=== PATIENT | male | born 1945 | race Caucasian/White ===

== ENCOUNTER 2020-07-26 10:43 | Emergency (ER) | payer MEDICARE, SELFPAY ==
[2020-07-26 10:56] VITALS: BP 175/79; PULSE 67; RESP 16; TEMP 36.8; O2SAT 98
--- NOTE | 2020-07-26 11:23 | ED.MALEGU ---
HPI - Male Genitourinary <ALLIE Mobley - Last Filed: 07/26/20 15:25> General Chief complaint: Urogenital-Male Stated complaint: Having a hard time Peeing since 6 AM Time Seen by Provider: 07/26/20 10:58 Source: patient Mode of arrival: Ambulatory Limitations: no limitations History of Present Illness HPI Narrative: 75-year-old male with history of BPH, presents to the emergency department for changes in urination that started at 6:00 a.m. this morning. He states he initially urinated at 6:00 a.m, which was fine. A few minutes after patient noticed that he had an increased urge to urinate approximately 6-7 times after this. He states the urge was sudden and he had a small amount of incontinence with some dysuria. Approximately a few hours later he had a few episodes of diarrhea. After passing stool, all issues resolved. Patient denies any abdominal pain, no further diarrhea. Patient denies fevers, chills, nausea, vomiting, chest pain, shortness of breath, or any other concerns. Patient denies any rectal pressure or pain. Related Data Home Medications Medication Instructions Recorded Confirmed ASPIRIN (Aspir-Low) 81 mg PO QDAY #0 06/07/12 [CALCIUM] #0 06/07/12 tadalafil [Cialis] 20 mg PO PRN #0 06/07/12 CHOLECALCIFEROL (VITAMIN D3) 2,000 units PO QDAY #0 06/10/12 Previous Rx's Medication Instructions Recorded dutasteride [Avodart] 0.5 mg PO QDAY #90 08/14/12 lisinopril [Zestril] 10 mg PO QDAY #90 12/02/12 cefuroxime axetil 500 mg PO BID 7 Days #14 tab 07/26/20 Review of Systems <ALLIE Mobley - Last Filed: 07/26/20 15:25> Review of Systems Narrative: REVIEW OF SYSTEMS: GENERAL: Denies fever. HENT: No head trauma. CARDIOVASCULAR: No chest pain. RESPIRATORY: No shortness of breath or cough. GASTROINTESTINAL: Denies abdominal pain. GENITOURINARY: Reports increased urinary urgency and dysuria. MUSCULOSKELETAL: No pain, weakness, or trauma. INTEGUMENTARY: No rash, lesions, or pruritus. NEURO: No numbness or tingling. PSYCH: No behavior or mood changes. Patient History <ALLIE Mobley - Last Filed: 07/26/20 15:25> Medical History BPH (benign prostatic hyperplasia) Social History Smoking Status: Never smoker Smoking Status: Never smoker alcohol intake frequency: 0-2 drinks per day Substance Use Type: does not use Exam <ALLIE Mobley - Last Filed: 07/26/20 15:25> Initial Vital Signs Initial Vital Signs: Vital Signs Temperature 98.3 F 07/26/20 10:56 Pulse Rate 67 07/26/20 10:56 Respiratory Rate 16 07/26/20 10:56 Blood Pressure 175/79 H 07/26/20 10:56 Pulse Oximetry 98 07/26/20 10:56 PHYSICAL EXAMINATION: GENERAL: Awake and alert, no distress. HENT: Normocephalic, atraumatic. Hearing intact. EYES: Conjunctiva pink, sclera white, no periorbital swelling. CARDIOVASCULAR: S1 and S2 sounds normal. Regular rate and rhythm, no murmurs, clicks, or bruits. No pedal edema. RESPIRATORY: Normal respiratory rate, trachea midline, airway patent. No stridor, nasal flaring or accessory muscle use. Lungs are clear in all rain without wheeze, rhonchi, or crackles. GASTROINTESTINAL: Bowel sounds normoactive. Abdomen is soft and nontender. No organomegaly, no palpable masses. GENITALURINARY: No flank tenderness. MUSCULOSKELETAL: Normal gait and coordination. Equal tone and mass bilaterally. EXTREMITIES: CMS intact, no pedal edema. SKIN: Warm, dry, soft, appropriate color for ethnicity. No lesions, rashes, or wounds to visualized areas. NEURO: Alert and Oriented X 3. Good coordination. No ataxia, or sensory deficits, or cognitive issues. PSYCH: Appropriate affect and mood. <Cristina Chappell DO - Last Filed: 07/26/20 19:04> Initial Vital Signs Initial Vital Signs: Vital Signs Temperature 98.3 F 07/26/20 10:56 Pulse Rate 67 07/26/20 10:56 Respiratory Rate 16 07/26/20 10:56 Blood Pressure 175/79 H 07/26/20 10:56 Pulse Oximetry 98 07/26/20 10:56 Course <JulietALLIE Alvarez - Last Filed: 07/26/20 15:25> Orders Ordered: ED Orders 07/26/20 11:35 Urine Culture Stat Urine Microscopic Stat Consultations Consultation #1: Patient staffed with Dr. Chappell discussed test, test results, and plan of care. Vital Signs Vital signs: Vital Signs - 8 hr 07/26/20 11:58 07/26/20 12:00 07/26/20 12:24 Pulse Rate 61 64 67 Blood Pressure 148/76 H Pulse Oximetry 98 98 98 <Cristina Chappell DO - Last Filed: 07/26/20 19:04> Orders Ordered: ED Orders 07/26/20 11:35 Urine Culture Stat Urine Microscopic Stat Vital Signs Vital signs: Vital Signs - 8 hr 07/26/20 11:58 07/26/20 12:00 07/26/20 12:24 Pulse Rate 61 64 67 Blood Pressure 148/76 H Pulse Oximetry 98 98 98 MDM - Male Genitourinary <Juliet MaravillaALLIE garcia - Last Filed: 07/26/20 15:25> Medical Records Attestation: I reviewed the patient's medical records. Lab Data Attestation: I reviewed the patient's lab results. Labs: Lab Results 07/26/20 Range/Units 11:35 Urine RBC 30-100/hpf H (0-5/HPF) Urine WBC 1-5/hpf (0-5/HPF) Urine Bacteria Moderate (10-30) H (None) Urine Mucus 1+ H (Negative) Ur Culture Indicated? Cult not indicated Urine Dip Bedside Urine Glucose Negative Bedside Urine Bilirubin - Negative Bedside Urine Ketone +/- 5 Urine Specific [place] 1.020 Bedside Urine Occult Blood +++ Bedside Urine pH 6.5 Bedside Urine Protein ++ 100 Bedside Urine Urobilinogen - Negative Bedside Urine Nitrite - Negative Bedside Urine Leukocytes - Negative Esterase MDM Narrative Medical decision making narrative: 75-year-old male presents emergency department for increased urinary urgency and a bout of dysuria. Patient states symptoms resolved after he had an episode of diarrhea. Diarrhea also resolved. He denies any abdominal pain. I suspect patient he may have a urinary tract infection given patient's symptoms and presence of blood and bacteria in microscopic urine sample. Patient was started on cefuroxime PO. Patient did have approximately 75 mL of urine retention postvoid, while this does not qualify for catheter placement, this may contribute to increased risk for infection. He does have history of BPH which this is most likely secondary to. Urine culture was ordered. He is hemodynamically stable, in no acute distress, afebrile, non tachycardic. He was started on p.o. medication and told to follow up with his primary care provider tomorrow as scheduled. Less concern for acute abdominal etiology given lack of abdominal pain and resolution of symptoms. Return precautions given for new or worsening symptoms. He agreed to plan of care verbalized understanding. <Cristina Chappell, DO - Last Filed: 07/26/20 19:04> Lab Data Labs: Lab Results 07/26/20 Range/Units 11:35 Urine RBC 30-100/hpf H (0-5/HPF) Urine WBC 1-5/hpf (0-5/HPF) Urine Bacteria Moderate (10-30) H (None) Urine Mucus 1+ H (Negative) Ur Culture Indicated? Cult not indicated Urine Dip Bedside Urine Glucose Negative Bedside Urine Bilirubin - Negative Bedside Urine Ketone +/- 5 Urine Specific [place] 1.020 Bedside Urine Occult Blood +++ Bedside Urine pH 6.5 Bedside Urine Protein ++ 100 Bedside Urine Urobilinogen - Negative Bedside Urine Nitrite - Negative Bedside Urine Leukocytes - Negative Esterase Discharge Plan Departure Patient Disposition: Home Clinical Impression: Urinary tract infection Qualifiers: Urinary tract infection type: acute cystitis Hematuria presence: with hematuria Qualified Code(s): N30.01 - Acute cystitis with hematuria Instructions: DI for Urinary Tract Infection (UTI) Activity Restrictions/Additional Instructions: Thank you for entrusting me with your care today. As discussed, your urine studies show some bacteria and blood. It is possible you could have a urinary tract infection. I prescribed you antibiotics. Your urine was sent for a culture, we will call you if we need to change antibiotics. Please follow-up with her primary care provider in the next week for further evaluation. Return emergency department for any new or worsening symptoms acute including fever, pain, or any other concerns. Prescriptions: New cefuroxime axetil 500 mg tablet 500 mg PO BID 7 Days Qty: 14 RF: 0 No Action ASPIRIN (Aspir-Low) 81 mg PO QDAY Qty: 0 RF: 0 tadalafil [Cialis] 20 MG tablet 20 mg PO PRN Qty: 0 RF: 0 [CALCIUM] Qty: 0 RF: 0 CHOLECALCIFEROL (VITAMIN D3) 2,000 units PO QDAY Qty: 0 RF: 0 dutasteride [Avodart] 0.5 MG capsule 0.5 mg PO QDAY Qty: 90 RF: 1 lisinopril [Zestril] 10 MG tablet 10 mg PO QDAY Qty: 90 RF: 1 Referrals: Rahul Linda MD [Primary Care Provider] - <Cristina Chappell DO - Last Filed: 07/26/20 19:04> Cosign ED Attending Cosstellaature Attestation: I was immediately available in the department for consultation, case was discussed with myself Documentation has been reviewed.
[2020-07-26 11:58] VITALS: PULSE 61; O2SAT 98
[2020-07-26 12:00] VITALS: PULSE 64; O2SAT 98
[2020-07-26 12:03] LABS: Bacteria Urine Moderate (10-30); Culture Indicated Urine Cult Not Indicated; Mucus Urine 1+ (Negative); RBC Urine 30-100/HPF (0-5/HPF); WBC Urine 1-5/HPF (0-5/HPF)
[2020-07-26 12:24] VITALS: BP 148/76; PULSE 67; O2SAT 98
== END 2020-07-26 12:40 | disposition home or self-care (01) ==
PROVIDERS: Emergency Provider Nurse Practitioner; Family Provider Family Medicine; PCP Family Medicine
DX: N30.01 Acute cystitis with hematuria (principal); R30.0 Dysuria; N40.1 Benign prostatic hyperplasia with lower urinary tract symptoms; N39.498 Other specified urinary incontinence; Z79.82 Long term (current) use of aspirin
CPT/HCPCS: 51798; 81003; 81015; 87086; 99281; 99283